=== PATIENT | female | born 1965 | race Caucasian/White ===

== ENCOUNTER → 2018-02-20 | Outpatient (CLI) | payer OTHER ==
--- NOTE | 2018-02-20 10:07 | XR ---
EXAM TYPE: LUMBAR SPINE X RAY SERIES COMPARISON: NONE HISTORY: Pain and numbness down the right thigh TECHNIQUE: 4 views are submitted. FINDINGS: Alignment is anatomic. The pedicles are intact. The transverse processes are intact. There is no s pondylolysis or spondylolisthesis. Hypertrophic and degenerative change of the spine with most marke d findings at L4-5 and L5-S1 with facet arthropathy. Diffuse osteopenia noted. IMPRESSION: 1. Multilevel degenerative disc disease and facet arthropathy consider MRI follow-up.. 2. There are approximately 10 calcifications overlying the left kidney and approximately 3 overlying the right kidney compatible with bilateral nephrolithiasis. All measure less than 5 mm.
== END | disposition home or self-care (01) ==
LOC: RADXRYALE 09:43
PROVIDERS: ATTEND Internal Medicine
DX: M51.36 Other intervertebral disc degeneration, lumbar region (principal); M46.97 Unspecified inflammatory spondylopathy, lumbosacral region; M54.31 Sciatica, right side
CPT/HCPCS: 72110

== ENCOUNTER → 2018-03-24 | Outpatient (CLI) | payer OTHER ==
--- NOTE | 2018-03-24 12:35 | MR ---
EXAMINATION TYPE: MR lumbar spine wo con DATE OF EXAM: 03/24/2018 COMPARISON: 02/17/2014 MRI lumbar spine HISTORY: Rt leg numbness/pain TECHNIQUE: Multiplanar, multisequence images of the lumbar spine were acquired without intravenous contrast. FINDINGS: The vertebral bodies maintain normal vertebral body heights and alignment to lumbar spine. Conus medu llaris is unremarkable terminating at L1. Multilevel intervertebral disc desiccation is seen. Bone ma rrow signal is within normal limits. There is a slight lobular contour of the kidneys and left renal atrophy. Bone marrow signal is unremarkable other than a focal area of T2/T1 hypointensity seen on a single image only and the L2 vertebral body. This is nonspecific and favored to be artifactual. L1-L2: Disc desiccation without focal disc bulge, herniation, or spinal canal stenosis. L2-L3: Mild facet arthropathy and disc desiccation are seen. No spinal canal stenosis or neural mike inal narrowing. No focal disc herniation. L3-L4: Small broad-based disc bulge and disc desiccation without spinal canal stenosis or neural fora latosha narrowing. Mild facet arthropathy and ligamentum flavum buckling are seen. L4-L5: There is a broad-based disc bulge, facet arthropathy and ligamentum flavum buckling resulting in minimal bilateral neural foraminal narrowing. No spinal canal stenosis. L5-S1: Generalized disc desiccation. No herniation, protrusion or disc bulging. No canal stenosis i s present. Foramina are patent bilaterally. IMPRESSION: 1. Mild degenerative disc disease, similar in degree to the prior of 2013 with no new disc herniation or spinal canal stenosis. 2. Minimal bilateral neural foraminal narrowing at L4-L5 as a result of a broad-based disc bulge. 3. No evidence of vertebral body height loss or malalignment.
== END | disposition home or self-care (01) ==
LOC: RADMRIMAIN 10:21
PROVIDERS: ATTEND Physical Medicine & Rehabilitation
DX: M51.36 Other intervertebral disc degeneration, lumbar region (principal); M99.73 Connective tissue and disc stenosis of intervertebral foramina of lumbar region
CPT/HCPCS: 72148

== ENCOUNTER → 2018-11-04 | Outpatient (CLI) | payer OTHER ==
--- NOTE | 2018-11-04 11:00 | XR ---
EXAMINATION TYPE: XR hand complete LT DATE OF EXAM: 11/04/2018 CLINICAL HISTORY: Hand pain worse 1st-3rd MCP joints. TECHNIQUE: Frontal, lateral and oblique images of the left hand are obtained. COMPARISON: None. FINDINGS: There is no acute fracture/dislocation evident in the left hand. There is mild narrowing a nd spurring throughout the phalanges involving PIP and DIP joints. There is relative sparing of the M CP joints. There is mild to moderate narrowing base of first metacarpal. The overlying soft tissue a ppears unremarkable. IMPRESSION: As above.
== END | disposition home or self-care (01) ==
LOC: RADXRYALE 10:31
PROVIDERS: ATTEND Internal Medicine
DX: M89.8X4 Other specified disorders of bone, hand (principal); M77.8 Other enthesopathies, not elsewhere classified

== ENCOUNTER → 2019-08-28 | Outpatient (CLI) | payer BC ==
--- NOTE | 2019-08-28 16:20 | XR ---
EXAMINATION TYPE: XR knee limited LT DATE OF EXAM: 08/28/2019 CLINICAL HISTORY: pain TECHNIQUE: Two views of the left knee are obtained. COMPARISON: None. FINDINGS: There is no acute fracture/dislocation. The tri-compartment joint spaces appear within no rmal limits. The overlying soft tissue appears unremarkable. IMPRESSION: There is no acute fracture or dislocation ICD 10 NO FRACTURE, INITIAL EVALUATION
== END | disposition home or self-care (01) ==
LOC: RADXRYALE 15:31
PROVIDERS: ATTEND Internal Medicine
DX: M25.562 Pain in left knee (principal)

== ENCOUNTER → 2019-10-07 | Outpatient (CLI) | payer BC ==
--- NOTE | 2019-10-08 12:02 | MM ---
Reason for exam: screening (asymptomatic). Last mammogram was performed 6 years and 6 months ago. History: Patient is postmenopausal. Physical Findings: A clinical breast exam by your physician is recommended on an annual basis and results should be correlated with mammographic findings. MG Screening Mammo w CAD Bilateral CC and MLO view(s) were taken. Prior study comparison: April 15, 2013, bilateral digital screening mammo w/CAD. July 19, 2005, bilateral screening mammogram, performed at [facility]. The breast tissue is almost entirely fat. No significant changes when compared with prior studies. ASSESSMENT: Benign, BI-RAD 2 RECOMMENDATION: Routine screening mammogram of both breasts in 1 year.
== END | disposition home or self-care (01) ==
LOC: RADMAMWWP 13:23
PROVIDERS: ATTEND Internal Medicine
DX: Z12.31 Encounter for screening mammogram for malignant neoplasm of breast (principal)
CPT/HCPCS: 77067

== ENCOUNTER → 2020-10-20 | Outpatient (CLI) | payer BC ==
--- NOTE | 2020-10-20 22:00 | XR ---
EXAMINATION TYPE: XR chest 2V DATE OF EXAM: 10/20/2020 COMPARISON: NONE TECHNIQUE: PA and lateral views submitted. HISTORY: Elevated white blood cell count FINDINGS: The lungs are clear and there is no pneumothorax, pleural effusion, or focal pneumonia. Hypertrophi c change of the spine. No overt failure. Biapical pleural thickening. Heart size normal. IMPRESSION: 1. No acute process.
== END | disposition home or self-care (01) ==
LOC: RADXRMAIN 14:25
PROVIDERS: ATTEND Internal Medicine Hematology & Oncology
DX: I10 Essential (primary) hypertension (principal); E11.9 Type 2 diabetes mellitus without complications; D72.829 Elevated white blood cell count, unspecified; Z71.3 Dietary counseling and surveillance
CPT/HCPCS: 71046

== ENCOUNTER → 2023-01-09 | Outpatient (CLI) | payer BC ==
--- NOTE | 2023-01-09 10:12 | XR ---
EXAM TYPE: LUMBAR SPINE X RAY SERIES COMPARISON: 02/20/2018 HISTORY: Pain TECHNIQUE: 4 views are submitted. FINDINGS: Alignment is anatomic. The pedicles are intact. The transverse processes are intact. There is no s evere facet arthropathy lower lumbar spine. There is moderate to severe degenerative disc disease L5- S1 and moderate changes at L4-5. Anterior hypertrophic spurring. Hypertrophic and degenerative change s of the thoracolumbar junction There are multiple bilateral renal calculi. IMPRESSION: 1. Moderate to severe degenerative disc disease and facet arthropathy L4-5 and L5-S1 stable from prio r exam. 2. Multiple bilateral renal calculi.
== END | disposition home or self-care (01) ==
LOC: RADXRYALE 09:31
PROVIDERS: ATTEND Physical Medicine & Rehabilitation
DX: M51.36 Other intervertebral disc degeneration, lumbar region (principal); M47.817 Spondylosis without myelopathy or radiculopathy, lumbosacral region; N20.0 Calculus of kidney
CPT/HCPCS: 72110